=== PATIENT | male | born 1940 | race Caucasian/White ===

== ENCOUNTER 2018-05-08 10:32 | Outpatient (CLI) | payer MEDICARE ==
--- NOTE | 2018-05-08 12:40 | RAD ---
CERVICAL SPINE AP AND LATERAL AND STANDARD: HISTORY: M54.12, M54.2, M54.5, pain. COMPARISON: None. 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 No acute fracture is appreciated. 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 Visualized ribs are unremarkable. Open mouth odontoid view appears unremarkable. Severe spondylosis of the cervical spine. POS: [facility]
== END 2018-05-08 10:33 | disposition home or self-care (01) ==
LOC: TBSIIMAG 10:32
PROVIDERS: ATTEND Neurological Surgery
DX: M54.12 Radiculopathy, cervical region (principal); M54.5 Low back pain
CPT/HCPCS: 72040